=== PATIENT | male | born 1975 | race American Indian/Alaskan Native ===

== ENCOUNTER → 2024-11-06 09:24 | Outpatient (REF) | payer BC, SELFPAY | LOC: MRI 3T 09:24 | PROVIDERS: ATTENDING PHYSICIAN Family Medicine | DX: M54.12 Radiculopathy, cervical region (principal) | CPT/HCPCS: 72141 ==

== ENCOUNTER 2024-11-24 16:57 | Emergency (ER) | payer BC, SELFPAY ==
[2024-11-24 17:04] VITALS: BP 147/102
--- NOTE | 2024-11-24 18:00 | ED.GENMED ---
History of Present Illness
General
Chief Complaint: Musculo-Skeletal Complaint
Source: patient
Exam Limitations: none
Time Seen by Provider: 11/24/24 17:37
Nursing documentation reviewed up to this point in time: agreed with
History of Present Illness
History of Present Illness:
-year-old male presents to the ER for evaluation. Patient has had chronic pain in his right upper back rating down the shoulder and right arm for the past 4 weeks. He has been followed by his family doctor at [facility] orthopedics. He had an
outpatient MRI which showed a paracentral/posterior lateral disc protrusion at C6/7 and C4/5 with moderate right foraminal stenosis at C2/3, C3/4, and C5/6. Patient received an epidural injection Monday at [facility] and
reports it helped for about 48 hours however pain has continued. He has been taking hydrocodone but stopped gabapentin because it was not helping his symptoms. He did speak with [facility] orth[facility] and they recommend he take ibuprofen which
still is not relieving his symptoms. Patient reports initially 4 weeks ago when symptoms started he received steroids which seem to be the only thing that helped. He denies any new weakness. He reports pain is the same as his typical symptoms.
Patient does have chronic numbness in right thumb and right index finger.
Review of Systems
Review of Systems
Allergies reviewed?: Yes
All Other Systems: ROS reviewed and negative except as documented in HPI and ROS
Constitutional: Reports no symptoms
Musculoskeletal: Reports other (pain right shoulder, upper back radiating to right arm )
Skin: Reports no symptoms
Neurological: Reports other (Numbness and tingling to the right thumb and index finger(not new)); Denies headache
Psychiatric: Reports no symptoms
Phy Exam
General Physical Exam
General Presentation: no apparent distress
General age: appears stated age
General Skin: warm and dry
General Habitus: normal
General Mental: alert
General Hydration: appears well hydrated
Cardiovascular Exam
Cardiovascular Exam: regular rate/rhythm, no murmur and normal peripheral pulses
Pulmonary Exam
Pulmonary Exam: lungs clear and no respiratory distress
Neurological Exam
Neurological Exam: alert, oriented x3, no motor deficits, no sensory deficits and other (Intact strength and sensation to right upper extremity)
Musculoskeletal Exam
Musculoskeletal Exam: full ROM
Psychiatric Exam
Psychiatric Exam: normal mood/affect
Course
Orders/Labs/Results
Orders:
Orders
11/24/24 17:59
Dexamethasone Sod Phosphate [Decadron] 10 mg IM NOW STA
11/24/24 18:04
Vital Signs- Treatment ONCE
Frequency: Once
Vital Signs
Initial and Last Documented VS:
Initial Vital Signs
Temp Pulse Resp BP Pulse Ox
98.8 F 97 18 147/102 95
11/24/24 17:04 11/24/24 17:04 11/24/24 17:04 11/24/24 17:04 11/24/24 17:04
Last Documented Vital Signs
Temp Pulse Resp BP Pulse Ox
98.8 F 97 18 138/82 95
11/24/24 17:04 11/24/24 17:04 11/24/24 17:04 11/24/24 18:40 11/24/24 17:04
MDM/Problems Addressed
Differential Diagnosis Includes:
not limited to: Radicular pain cervical in origin
MDM/Problems Addressed:
As documented patient symptoms are consistent with his chronic radiculopathy. He does have orthopedics and recently had an epidural. He has no evidence of infection denies any fever chills has pain is radicular in nature. He reports steroids
worked when this initially started several weeks ago and therefore I gave patient an injection of Decadron here in the ER and a prescription for steroids for home to start tomorrow. I did review with patient over the importance of close following
up with orthopedics tomorrow. He is in no acute distress he is afebrile. He has no upper extremity weakness.
*Pulse Oximetry
Patient hypoxic: no
*Critical Care Note
Total Time (30-74mins, 75-104mins- exclusive of procedures): Not Applicable
ED Attending Note
-
Portions of this chart may have been created with voice recognition software.� Occasional wrong word or��sound alike� substitutions may have occurred due to the inherent limitations of voice recognition software.
Discharge Plan
Departure
Patient Disposition: Home (Routine Discharge)
Date of Disposition: 11/24/24
Time of Disposition: 18:05
Patient with high blood pressure during this ER visit?: Yes
Condition: Fair
Covid-19: Not Applicable
Discharge Problem:
Radiculopathy affecting upper extremity
Instructions: Radiculopathy of the neck and back (including sciatica), BLOOD PRESSURE
Prescriptions:
New
prednisone 10 mg Tablet
See Rx Instructions .ROUTE .COMPLEX Qty: 30 0RF
Rx Instructions:
Take By Mouth:
40 mg daily x3 days, 30 mg daily x3 days,
20 mg daily x3 days, 10 mg daily x3 days.
Referrals:
Nghia Ayala MD [Active] -
Nitin Concepcion MD [Family Provider] -
Activity Restrictions/Additional Instructions:
As discussed you were given an injection of steroids here in the ER and a prescription for steroid taper was sent to your pharmacy take as directed. Please call [facility] orth[facility] to make an appointment for reevaluation of continued symptoms.
return if any worsening of symptoms.
Interventions
Interventions:
*Risk Screen - Suicide Last Done: 11/24/24 17:07
*General Assessment Last Done: 11/24/24 17:07
*Neglect/Abuse Screening Last Done: 11/24/24 17:07
*ED- Fall Risk Assessment Last Done: 11/24/24 18:41
*ED COVID-19 Vaccine History Last Done: 11/24/24 17:07
*Nursing Disposition Last Done: 11/24/24 18:40
ED-Musculoskeletal Assessment Last Done: 11/24/24 18:41
Discharge Date and Time
Discharge Date/Time: 11/24/24 18:41
Print Language: [place]
[2024-11-24] MEDS: DECADRON 10 MG IM (18:12)
[2024-11-24 18:40] VITALS: BP 138/82
== END 2024-11-24 18:41 | disposition home or self-care (01) ==
LOC: EMR 16:57
PROVIDERS: EMERGENCY PHYSICIAN Emergency Medicine; FAMILY PHYSICIAN Family Medicine
DX: M54.10 Radiculopathy, site unspecified (principal); M25.511 Pain in right shoulder; M54.6 Pain in thoracic spine; M79.601 Pain in right arm; M50.221 Other cervical disc displacement at C4-C5 level; M48.02 Spinal stenosis, cervical region; G89.29 Other chronic pain; R03.0 Elevated blood-pressure reading, without diagnosis of hypertension; Z88.8 Allergy status to other drugs, medicaments and biological substances
CPT/HCPCS: 99284; 96372